=== PATIENT | female | born 1980 | race Caucasian/White ===

== ENCOUNTER 2017-04-15 00:08 | Inpatient (IN) | payer BC ==
[2017-04-15] MEDS ORDERED: Acetaminophen TAB* 325 MG PO PRN (01:29)
[2017-04-15] MEDS ORDERED: Witch Hazel PAD* JAR TOPICAL PRN (01:29)
[2017-04-15] MEDS ORDERED: Dibucaine 1% 28.35 GM TUBE PR PRN (01:29)
[2017-04-15] MEDS ORDERED: Ibuprofen TAB* 600 MG PO PRN (01:29)
[2017-04-15] MEDS: Docusate CAP* 100 MG PO SCH ×2 (10:34→23:06)
[2017-04-16 08:20] VITALS: BP 110/65
[2017-04-16] MEDS ORDERED: Ferrous Gluconate TAB* 324 MG TAB PO SCH (09:00)
== END 2017-04-16 11:10 | disposition home or self-care (01) | DRG 560 ==
LOC: MCHOBOUT 00:08 → MCHOB 00:23
PROVIDERS: ADMIT Midwife; ATTEND Midwife
PROC: 4A1HX4Z Monitoring of Products of Conception, Cardiac Electrical Activity, External Approach (ICD-10-PCS; principal; 2017-04-15)
PROC: 10E0XZZ Delivery of Products of Conception, External Approach (ICD-10-PCS; 2017-04-15)
PROC: 0HQ9XZZ Repair Perineum Skin, External Approach (ICD-10-PCS; 2017-04-15)
PROC: 10907ZC Drainage of Amniotic Fluid, Therapeutic from Products of Conception, Via Natural or Artificial Opening (ICD-10-PCS; 2017-04-15)
DX: O70.0 First degree perineal laceration during delivery (principal); Z37.0 Single live birth; Z3A.39 39 weeks gestation of pregnancy
CPT/HCPCS: A9270-GY

== ENCOUNTER 2019-03-16 04:15 | Inpatient (IN) | payer BC ==
[2019-03-16] MEDS ORDERED: Ibuprofen TAB* 600 MG ONE (05:48)
[2019-03-16] MEDS ORDERED: Buffered Lidocaine 1% SYRIN* 1 ML/SYRINGE INTRADERM ONE (06:14)
[2019-03-16] MEDS ORDERED: Witch Hazel PAD* JAR TOPICAL PRN (06:14)
[2019-03-16] MEDS ORDERED: Acetaminophen TAB* 325 MG PO PRN (06:14)
[2019-03-16] MEDS ORDERED: Dibucaine 1% 28.35 GM TUBE PR PRN (06:14)
[2019-03-16] MEDS ORDERED: Glycerin ADULT SUPP PR PRN (06:14)
[2019-03-16] MEDS ORDERED: Lactated Ringers 1000 ML Bag* 1,000 ML IV ONE (06:14)
--- NOTE | 2019-03-16 06:22 | HP ---
General Information - Reason for Visit contractions - General Information Maternal Age: 38 Grav: 3 Para: 2 SAB: 0 IEA: 0 Estimated Due Date: 03/19/19 Determined By: Early Ultrasound Maternal Blood Type and Rh: A Positive - Results this Serology/RPR Result: Non-Reactive Rubella Result: Non-Immune HBsAg Result: Negative HIV Result: Negative GBS Culture Result: Negative Past Medical History Delivery History: See Records Delivery History Comment: SVB 01/2015 SVB 03/2017 Pertinent Past Medical History: See Records Past Medical History Comment: Asthma Pertinent Past Surgical History: None Pertinent Family History: See Records Family History Comment: hypothyroid osteoporosis lymphoma macular degeneration Diabetes Type 2 - Antepartal Records Antepartal Records: Reviewed, Complicated by: Review of Systems Constitutional: Uncomfortable CV Complaint: No Respiratory: Shortness of Breath: No Exam Allergies/Adverse Reactions: Allergies No Known Allergies Allergy (Verified 02/14/15 23:58) None prior to delivery - Measurements Pre- Weight: 159 lb - Ultrasound/Biophysical Profile Ultrasound Status: Not Done Targeted Exam Findings Membrane Status: Intact Bleeding/Discharge: None EFM Findings - External Monitor Findings Baseline Heart Rate: 125 External Monitor Findings: Accelerations Present, No Pattern of Variable or Late Decelerations, Variability Moderate Contractions: Regular, Strong Assessment/Plan - Assessment IUP in active labor - Plan Plan: Admit - Anticipate Vaginal Delivery - Date/Time of Admission Date of Admission: 03/16/19 Time of Admission: 04:18
--- NOTE | 2019-03-16 06:29 | PROCNOTE ---
[facility] OB: Delivery Note - Delivery A Date of : 03/16/19 Time of : 04:45 [place] Sex: Male - name TBD Score 1 Minute: 9 Score 5 Minutes: 9 Gestational Age in Weeks and Days at Delivery: 39 Weeks and 4 Days Delivery Method: Spontaneous Vaginal Labor: Spontaneous Amniotic Fluid: Clear Estimated Blood Loss: 350 Anesthesia/Analgesia: None Delivered By: Anupam Grant - Nursery Level of Nursery: Regular/Bedside - Perineum Perineal Injury: 1st Degree Perineal Repair: By Delivering Practioner - Additional Delivery Notes Additional Delivery Notes: Patient arrived in active labor with strong urge to push. LOL 3'20", pushed 5 min. Baby preceded by fluid-filled membrane. Patient pushed standing/squatting at side of bed. Baby born OA with shoulders following smoothly. Nuchal cord unwrapped after delivery. Baby delivered through mom's legs, she moved to bed with baby on chest. Cord doubly clamped and cut by FOB once pulsations ceased. Placenta delivered with gentle cord traction, [place], 3VC, trailing membranes teased out after delivery. Fundus firm to massage. Perineal repair as above. Baby at breast to initiate . Both stable.
[2019-03-16] MEDS ORDERED: Lactated Ringers 1000 ML Bag* 1,000 ML IV SCH ×2 (07:00)
[2019-03-16] MEDS ORDERED: OXYTOCIN* 10 UNITS/ML 1 ML VIAL ONE (07:23)
[2019-03-16] MEDS ORDERED: Lidocaine 1% INJ* 10 MG/ML 30 ML SDV ONE (12:10)
[2019-03-16] MEDS: Ibuprofen TAB* 600 MG PO PRN ×2 (12:31→18:33)
[2019-03-16] MEDS: Docusate CAP* 100 MG PO SCH ×2 (15:29→20:33)
[2019-03-17] MEDS: Ibuprofen TAB* 600 MG PO PRN ×2 (00:40→08:04)
[2019-03-17 08:51] VITALS: BP 97/62
[2019-03-17] MEDS ORDERED: Ferrous Gluconate TAB* 324 MG TAB PO SCH (09:00)
== END 2019-03-17 10:35 | disposition home or self-care (01) | DRG 560 ==
LOC: MCHOBOUT 04:15 → MCHOB 04:18
PROVIDERS: ADMIT Midwife; ATTEND Midwife
PROC: 10E0XZZ Delivery of Products of Conception, External Approach (ICD-10-PCS; principal; 2019-03-16)
PROC: 4A1HXCZ Monitoring of Products of Conception, Cardiac Rate, External Approach (ICD-10-PCS; 2019-03-16)
PROC: 0HQ9XZZ Repair Perineum Skin, External Approach (ICD-10-PCS; 2019-03-16)
DX: O69.81X0 Labor and delivery complicated by cord around neck, without compression, not applicable or unspecified (principal); Z37.0 Single live birth; Z3A.39 39 weeks gestation of pregnancy; O70.0 First degree perineal laceration during delivery; O73.1 Retained portions of placenta and membranes, without hemorrhage
CPT/HCPCS: A9270-GY; J2590